=== PATIENT | male | born 1960 | race Caucasian/White ===

== ENCOUNTER → 2018-11-26 | Outpatient (CLI) | payer OTHER | LOC: CAT 12:45 | DX: Z13.6 Encounter for screening for cardiovascular disorders (principal); I25.10 Atherosclerotic heart disease of native coronary artery without angina pectoris; E78.00 Pure hypercholesterolemia, unspecified ==

== ENCOUNTER → 2018-12-18 | Outpatient (CLI) | payer BC ==
[~2018-12-18] MED LIST: ASPIR 8181 MG PO; ASPIRIN325 PO; EFFIENT10 MG PO; JARDIANCE10 MG PO; LIPITOR 20 MG T20 M1 PO; METFORMIN HCL1000 MG PO; NITROGLYCERIN0.4 MG SUBLING; TOPROL XL25 MG PO
--- NOTE | 2018-12-18 14:17 | EXE ---
[facility] [place] [address] STRESS ECHOCARDIOGRAM Name: ROMULO YEPEZ Room #: REG [facility]#: [id number] Admission: 12/18/18 Attend Phys: Clvois Fields Discharge: Date of : 60 Date of Service: 12/18/18 1417 Report #: [id number] THIS REPORT FOR: //name// APPROVED REPORT Study performed: 12/18/2018 11:26:47 Exam: Stress Echocardiogram Indication: Elevated calcium score Patient Location: Out-Patient Stress Nurse: ARABELLA Cha Status: routine Ht: 6 ft 1 in HR: 65 bpm BP: 124/80 mmHg Rhythm: NSR Medical History Medications: Listed Allergies: Penicillin Cardiac Risk Factors: Hyperlipidemia, DM, FHX of CAD Procedure The patient underwent an Exercise Stress Test using the Ayo Protocol. Blood pressure, heart rate, and EKG were monitored. An Echocardiogram was performed by eligibility technician in four stages in quad fashion. At peak stress, four selected images were obtained and placed side by side with resting images for comparison. Stress Test Details Stress Test: Exercise stress testing was performed using a Ayo protocol. HR Resting HR: 65 bpm Max Heart Rate (APMHR): 162 bpm Max HR Achieved: 166 bpm Target HR (85% APMHR): 137 bpm % of APMHR: 102 Recovery HR: 90 bpm HR response to stress: Normal HR response to stress BP Resting BP: 124/80 mmHg Max BP: 178/80 mmHg Recovery BP: 136/76 mmHg BP response to stress: Normal blood pressure response to stress. [facility] [address] [place] [address] STRESS ECHOCARDIOGRAM Name: ROMULO YEPEZ Room #: REG [facility]#: [id number] Admission: 12/18/18 Attend Phys: Clovis Fields Discharge: Date of : 60 Date of Service: 12/18/18 1417 Report #: [id number] ECG Resting ECG: Sinus Rhythm Stress ECG: Sinus Tachycardia ST Change: Horizontal ST depression Arrhythmia: None Recovery ECG: Sinus Rhythm Clinical Reason for Termination: Completed protocol Stress Symptoms: None Exercise duration: 11 min 08 sec Highest Stage Achieved: Stage 4: 4.2 mph at 16% grade. Exercise capacity: 13.70 METs Stress ECG Conclusion 1. Subjectively negative for ischemia 2. Electrocardiographically abnormal with ST segment depressions noted in precordial leads 3. Adequate functional capacity Pre-Stress Echo The resting Echocardiogram showed normal left ventricular contractility with an estimated Ejection Fraction of about 55%. No significant valvular abnormalities noted. Post-Stress Echo The stress Echocardiogram showed abnormal left ventricular contractility with an estimated Ejection Fraction of about 55-60%. The stress Echocardiogram demonstrated wall motion abnormality in the inferior wall. Conclusion Clinical Response: Non-ischemic Exercise Capacity: Superior Stress ECG Response: Ischemic Stress Echo Images: Ischemic 1. Abnormal stress echo suggestive of coronary artery disease Other Information Study Quality: Fair Technically limited study due to lung and bone artifact. [facility] [address] [place] [address] STRESS ECHOCARDIOGRAM Name: ROMULO YEPEZ Room #: REG [facility].#: [id number] Admission: 12/18/18 Attend Phys: Clovis Fields Discharge: Date of : 60 Date of Service: 12/18/18 1417 Report #: [id number] <Conclusion> 1. Abnormal stress echo suggestive of coronary artery disease <ELECTRONICALLY SIGNED> By: Clovis Durham MD 12/18/18 1417 16 16 Clovis Durham MD /INF
== END ==
LOC: CV 11:15
DX: I25.10 Atherosclerotic heart disease of native coronary artery without angina pectoris (principal); E78.5 Hyperlipidemia, unspecified; E11.9 Type 2 diabetes mellitus without complications; Z88.0 Allergy status to penicillin; Z82.49 Family history of ischemic heart disease and other diseases of the circulatory system

== ENCOUNTER 2018-12-22 10:23 | Observation (INO) | payer BC ==
[~2018-12-22] VITALS: Ht 185.4 cm; Wt 100.7 kg
[2018-12-22 10:59] VITALS: BP 130/74
[2018-12-22 11:00] LABS: HEMATOCRIT 45.1 % (42.0-52.0); HEMOGLOBIN 15.8 gm/dL (14.0-18.0); MCH 32.8 pg (26.0-34.0); MCV 93.6 fL (80.0-100.0); RBC 4.82 mil/uL (4.50-6.00); WBC 5.5 thou/uL (4.0-11.0)
[2018-12-22 11:07] LABS: CALCIUM 10.4 mg/dL (8.5-10.1); POTASSIUM 4.4 mmol/L (3.5-5.1)
[2018-12-22] MEDS ORDERED: TOPROL XL25 MG PO (11:07)
[2018-12-22] MEDS ORDERED: ASPIR 8181 MG PO (11:08)
[2018-12-22] MEDS ORDERED: LIPITOR 20 MG T20 M1 PO (11:08)
[2018-12-22] MEDS ORDERED: METFORMIN HCL1000 MG PO (11:09)
--- NOTE | 2018-12-22 16:31 | EKG ---
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
[2018-12-22 19:39] VITALS: BP 117/70
[2018-12-23 00:33] VITALS: BP 116/65
[2018-12-23 04:27] VITALS: BP 125/63
[2018-12-23 05:51] LABS: HEMATOCRIT 40.3 % (42.0-52.0); HEMOGLOBIN 13.9 gm/dL (14.0-18.0); MCH 32.5 pg (26.0-34.0); MCHC 34.6 g/dL (28.0-37.0); MCV 93.9 fL (80.0-100.0); RBC 4.29 mil/uL (4.50-6.00); RDW 13.1 % (10.5-14.5); WBC 5.6 thou/uL (4.0-11.0)
[2018-12-23 06:15] LABS: ALBUMIN 3.7 g/dL (3.4-5.0); ANION GAP 10 mmol/L (7-16); BUN 14 mg/dL (7-18); CALCIUM 8.6 mg/dL (8.5-10.1); CHLORIDE 104 mmol/L (98-107); CO2 26 mmol/L (21-32); GLUCOSE 143 mg/dL (74-106); SGOT 16 U/L (15-37); SGPT 38 U/L (30-65); SODIUM 140 mmol/L (136-145); TOTAL BILIRUBIN 1.3 mg/dL (<0.1-1.0); TOTAL PROTEIN 6.4 g/dL (6.4-8.2); TROPONIN-I <0.06 ng/mL (<0.06)
[2018-12-23 07:41] VITALS: BP 122/66
--- NOTE | 2018-12-23 07:51 | EKG ---
[address] [address] ELECTROCARDIOGRAM REPORT Name: ROMULO YEPEZ Room #: 204-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
[2018-12-23] MEDS ORDERED: ASPIRIN325 PO (08:35)
[2018-12-23] MEDS ORDERED: EFFIENT10 MG PO (08:35)
[2018-12-23] MEDS ORDERED: JARDIANCE10 MG PO (09:56)
[2018-12-23] MEDS ORDERED: NITROGLYCERIN0.4 MG SUBLING (09:56)
[2018-12-23 10:06] VITALS: BP 122/66
--- NOTE | 2018-12-23 16:37 | CATHLAB ---
[facility] [place] [address] INVASIVE PROCEDURE REPORT Name: ROMULO YEPEZ Room #: 204-P [facility]#: [id number] Admission: 12/22/18 Attend Phys: Clovis Fields Discharge: 12/23/18 Date of : 60 Date of Service: 12/23/18 1637 Report #: [id number] THIS REPORT FOR: //name// APPROVED REPORT Study performed: 12/22/2018 11:09:05 Patient Details The patient is a 58 year-old male Event Personnel Clovis Durham Aviation Electrician, Omkar Henderson RN RN, Andres Marquez RTR Scrub, Lance Chatman RTR Monitor, Tika Manriquez RTR, AGRICULTURAL EDUCATION INSTRUCTOR Monitor, Manuela Jackson RTR Scrub Procedures Performed Left Heart Cath w/or w/o Coronaries [id number] [facility] BENJA Place w/wo Plasty Single RCA [id number], supervision of conscious sedation Indication Positive stress test, Chest pain Procedure Narrative The Right Groin^ was infiltrated with 1% Lidocaine subcutaneous anesthesia. A PINNACLE 4FR Sheath #[id number] sheath was inserted into the RFA^. Coronary angiography was performed using coronary diagnostic catheters. The right coronary system was accessed and visualized with a JR4 catheter. The left coronary system was accessed and visualized with a JL4 catheter. The left ventricle was accessed and visualized with a Pigtail catheter. Closure device was deployed with a Fr MYNX CONTROL 6F/7F #[id number]. The patient tolerated the procedure well and there were no complications associated with the procedure. Intraoperative Conscious Sedation Sedation start time: 1226 Case end Time: 1305 Versed 4 mg Fluoro Time: 8.26 minutes Dose: DAP 7720.50 cGycm2 1091 mGy Contrast Type and Amount: Omnipaque 100 ml Coronary Angiography [facility] [place] [address] INVASIVE PROCEDURE REPORT Name: ROMULO YEPEZ Room #: 204-P [facility]..#: [id number] Admission: 12/22/18 Attend Phys: Clovis Fields Discharge: 12/23/18 Date of : 60 Date of Service: 12/23/18 1637 Report #: [id number] The patient's coronary anatomy is right dominant. Diagnostic Cath Left Main Left main is of normal origin and caliber bifurcates left anterior descending left circumflex. It is free of high-grade lesions. LAD Moderate caliber type II vessel which courses in the anterior interventricular sulcus giving rise to a moderate caliber proximally and is rapidly tapering to straining size first diagonal branch. The LAD then continues in the anterior interventricular sulcus skin rash to septal and diagonal branches tapering in its course and terminating as a bifurcating vessel at the apex. Diagonal 1 Proximally moderate caliber vessel rapidly tapers and is an eccentric 90+ percent lesion. This is segment in the proximal third of significant lesion in the vessel reconstitutes as a small string-like vessel occlusion on the anterolateral wall Circumflex Moderate caliber vessel consisting of a marginal branch after the circumflex proper enters the AV groove. No high-grade lesions are noted in this branch is the circumflex terminated small-caliber posterior wall branches OM1 Moderate caliber vessel coursing on the lateral aspect of the heart. High-grade disease Right Coronary Large-caliber dominant vessel which has normal origin. It proceeds to the acute margin where small RV marginal branch originates. The vessel then continues on in prior to reaching the crux of the heart is an eccentric 90% lesion that appears to be at least 6-8 mm in length. The vessel reconstitutes itself and then gives rise to a posterior descending artery and the posterior circulation which consist of several small posterolateral wall branches R PDA Moderate caliber vessel coursing in the posterior interventricular sulcus towards the apex in a tortuous course but free of high-grade disease Left Ventriculography Left Ventriculography was not performed. Hemodynamics The aortic pressure is 123/68 mmHg with a mean of 90 mmHg. The left ventricular pressure is 117/7 mmHg with a mean of mmHg. The left ventricular end diastolic pressure is 16 mmHg. PCI Technique Following angiography was deemed the right coronary artery required revascularization. The lesion location was consistent with a distal [facility] [address] [place] [address] INVASIVE PROCEDURE REPORT Name: ROMULO YEPEZ Room #: 204-P DIS IN M.RDilip#: [id number] Admission: 12/22/18 Attend Phys: Clovis Fields Discharge: 12/23/18 Date of : 60 Date of Service: 12/23/18 1637 Report #: [id number] anteroapical wall motion of a magnet was seen on stress echo and therefore the 4 [place]ander system was exchanged for a 6 [place] system. Utilizing a standard Tiara right guide was engaged with the right coronary ostium. A portal 14 wire was then advanced into the mid and distal posterior descending artery and a 3.5 mm x 18 mm BENJA Medtronic stent was positioned and deployed. The pulmonary was uncomplicated and had some irregularities of the stenting. In view of this the deployment balloon was removed and a noncompliant 8 mm length 4 mm diameter balloon was then positioned within the stent and inflated to 18 anca consistent with a 4 mm diameter. Subsequent to this the vessel size and stent deployment was comparable. There is no loss of side branch distal embolization. No intraluminal thrombus was noted. Final visualization was obtained and was satisfactory and devices removed. Her site and sheath were sealed with a minx system. Patient tolerated procedure well and no complications. PCI Technique Lesion Anticoagulation was achieved with Angiomax. Percutaneous coronary intervention was performed on the distal right coronary artery. A LAUNCHER 6FR JR 4 #[id number] Guide Catheter was used to engage the ostium. A Luge Wire (J) .014 X 182CM #[id number] Interventional Guidewire was used to cross the lesion. STENT DEPLOYMENT A stent RESOLUTE CALLUM OTW 3.5 X 18 #[id number] was inserted and inflated up to 12.00atm for 12seconds. Additional Inflation: 18.00atm for 8seconds. POST STENT DEPLOYMENT BALLOON DILATION A Balloon catheter TREK NC OTW 3.75 X 12 #[id number] was inserted and inflated up to 18.00atm for 17seconds. Additional Inflation: 18.00atm for 9seconds. Conclusion 1. 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 Normal hemodynamics 3. Successful percutaneous revascularization of the right coronary artery with a 3.5 x 18 mm BENJA Medtronic stent postdilated to 4 mm diameter Recommendations Cardiac Risk Reduction Program [facility] [address] [place] [address] INVASIVE PROCEDURE REPORT Name: ROMULO YEPEZ Room #: 204-P [facility] IN M.R.#: [id number] Admission: 12/22/18 Attend Phys: Clovis Fields Discharge: 12/23/18 Date of : 60 Date of Service: 12/23/181636 Report #: [id number] The patient will proceed with aspirin and prasugrel dual antiplatelet treatment per standard 9-12 months post insertion. In view of the presence of coronary disease in the diagonal branch optimization of medical management for coronary disease consisting of beta blockade will also be carried forth long-term. <ELECTRONICALLY SIGNED> By: Clovis Durham MD 12/23/187 36 36 Clovis Durham MD /INF
== END 2018-12-23 10:45 | disposition home or self-care (01) ==
LOC: CATH 10:23 → 2N 15:21 → CATH 16:12 → ENTRNSPT 12-23 10:33 → EDTRNSPTSTS 12-23 10:35 → 2N 12-23 10:45
PROVIDERS: Nurse Practitioner Adult Health; ADMIT Internal Medicine
DX: I25.10 Atherosclerotic heart disease of native coronary artery without angina pectoris (principal); E78.5 Hyperlipidemia, unspecified; E11.9 Type 2 diabetes mellitus without complications; Z79.82 Long term (current) use of aspirin; Z79.899 Other long term (current) drug therapy

== ENCOUNTER → 2021-01-22 | Outpatient (CLI) | payer BC | LOC: SJCVCIMAG 07:29 | PROVIDERS: ATTEND Internal Medicine | DX: R00.1 Bradycardia, unspecified (principal); I25.10 Atherosclerotic heart disease of native coronary artery without angina pectoris; E78.5 Hyperlipidemia, unspecified; E11.9 Type 2 diabetes mellitus without complications; Z98.61 Coronary angioplasty status ==